=== PATIENT | female | born 1955 | race Caucasian/White ===

== ENCOUNTER → 2016-09-30 | Outpatient (CLI) | payer OTHER ==
[~2016-09-30] MED LIST: BUPROPION HCL150 M3 PO; COUMADIN5 MG PO; COUMADIN7.5 MG PO; GLUCOSAMINE S1000 M3 PO; LIPITOR40 MG PO; LORTAB 10-3251 EACH PO; MELOXICAM15 MG PO; METFORMIN HCL500 M4 PO; PERCOCET10 PO; PRINIVIL40 MG PO; PROBIOTIC1 EAC1 PO; STOOL SOFTENER50 MG PO; VITAFOL-ONE CA1 EACH PO
--- NOTE | ~2016-09-30 | CO ---
Unit #: [id number] #: [id number] Patient: BETH GOODWIN [id number] [address] [place], [place] [address] [id number] O MR#: [id number] NAME: BETH GOODWIN ROOM: Age: 61 Sex: F Admission Date: 09/30/2016 : 1955 Attending Physician: Jaron Klein M.D. Consultation Date: 09/30/2016 CONSULTATION REPORT REASON FOR CONSULTATION Preoperative medical evaluation prior to right unicompartmental knee arthroplasty, scheduled by Dr. Klein for 10/05/2016. HISTORY OF PRESENT ILLNESS The patient is a 61-year-old female, who presents to preprocedural screening for the reasons indicated above. She states it is difficult to describe the sensation that she feels in her knee with ambulation but that it is "just not right." She denies chest, back, arm, neck, jaw pain or pressure. Denies shortness of air, dyspnea on exertion, paroxysmal nocturnal dyspnea. She was evaluated by a sleep study expert in the past but lost her insurance before she was able to get the results of the sleep study. She denies history of myocardial infarction, congestive heart failure, CVA, TIA, insulin-dependent diabetes, or chronic kidney disease. She is on oral hypoglycemic therapy for diabetes mellitus. She has no other complaints at the time of this interview. She has been evaluated Dr. Klein and scheduled for the above-referenced procedure. PAST MEDICAL HISTORY 1. Osteoarthritis. 2. Diabetes mellitus. 3. Hypertension. 4. History of cervical cancer. 5. Hypothyroidism. 6. Hyperlipidemia. 7. Possible history of leukocytosis. 8. Depression/anxiety. PAST SURGICAL HISTORY 1. Left knee arthroscopy x2. 2. Left forearm ORIF with subsequent hardware removal. 3. Lens implant both eyes. 4. Laparoscopic cholecystectomy. 5. Tonsillectomy and adenoidectomy. 6. Dental surgery. 7. Colonoscopies. Please note, patient denies a personal and family history of complications to anesthesia. ALLERGIES Denies latex allergy. No known medical allergies. Unit #: [id number] #: [id number] Patient: BETH GOODWIN CURRENT MEDICATIONS 1. Bupropion HDL SR 150 mg p.o. q.p.m. 2. Lipitor 40 mg p.o. q.p.m. 3. Prinivil 40 mg p.o. q.p.m. 4. Meloxicam 15 mg p.o. q.a.m. 5. Metformin HCL ER 500 mg p.o. q.p.m. 6. Glucosamine sulfate 1000 mg p.o. q.p.m. SOCIAL HISTORY Denies tobacco use, etoh use, and illicit drug use. FAMILY HISTORY Per review of Dr. Klein's office note, hypertension and hyperlipidemia. REVIEW OF SYSTEMS A 10-point review of systems is conducted and otherwise negative except as indicated under history of present illness above. PHYSICAL EXAMINATION VITAL SIGNS: Temperature 98.6, heart rate 90, respirations 16, blood pressure 143/93, oxygen saturation 97% on room air. GENERAL: 61-year-old female, awake, alert, in no acute distress. HEENT: Atraumatic, normocephalic. Sclerae anicteric. No discharge from eyes, ears, or nares. LYMPH: No preauricular, postauricular, tonsillar, submental, anterior, posterior cervical adenopathy. ENDOCRINE: No thyromegaly, thyroid nodules or tenderness. LUNGS: Clear to auscultation all bird bilaterally without wheezes, rhonchi or rales. HEART: S1, S2. Regular rate and rhythm, without murmur or rub. ABDOMEN: Bowel sounds positive times four. Soft, nontender, nondistended. EXTREMITIES: No edema, cyanosis or clubbing. Bilateral lower extremity varicosities, right greater than left. Calves soft, nontender bilaterally. MUSCULOSKELETAL: Strength 5/5 all extremities bilaterally to flexion and extension. NEUROLOGIC: Alert and oriented x3. Speech clear. Cranial nerves II-XII are grossly intact. Follows commands. DIAGNOSTIC STUDIES LABORATORY: WBC 13.6, hemoglobin 15.0, hematocrit 45.9, platelet count 311,000. Sodium 141, potassium 4.3, chloride 106, CO2 is 26, glucose 103, BUN 18, creatinine 0.9, calcium 9.8, AST 18, ALT 22, alkaline phosphatase 85, total bilirubin 0.3, total protein 7.0, albumin 4.1. PT 9.8, INR 0.9. Urinalysis negative with neither microscopic nor culture indicated. MRSA nasal screen report pending at this time. Blood type A positive, antibody screen negative. IMAGING: Two-view chest x-ray today pending at this time. CARDIOVASCULAR: 12-lead EKG normal sinus rhythm, normal ECG. Confirmed report pending at this time. IMPRESSION 1. The patient is a 61-year-old female who presents to preprocedural screening for preoperative evaluation prior to right unicompartmental knee arthroplasty as scheduled by Dr. Klein. The Unit #: [id number] #: [id number] Patient: BETH GOODWIN patient's Brooke revised cardiac risk index is equal to 0.4%. This is consistent with patient's perioperative risk of cardiac , fatal or nonfatal myocardial infarction, arrhythmia, and/or pulmonary edema. This has been discussed in detail with the patient, she wishes to proceed with surgery as scheduled at this time. 2. Diabetes mellitus on oral hypoglycemics. Will follow Accu-Cheks postoperatively, monitor p.o. intake, place patient on constant carbohydrate diet when tolerating food and fluids, add low-dose sliding scale insulin protocol. We will also hold metformin per hospital protocol perioperatively. 3. Hypertension. Blood pressure stable today. Will monitor perioperatively and adjust medications accordingly. 4. History of cervical cancer. 5. Hypothyroidism. Patient is not on medications at this time. Will check a TSH and free T4 off work in the lab today. 6. Hyperlipidemia. 7. Mild leukocytosis. Patient states she believes she has had an issue with this in the past. There is no obvious or lab-indicated source of infection at this time. Patient has no complaints consistent with possible infection. Therefore, I have recommended a repeat CBC the a.m. of OR. 8. Depression, mild anxiety. Will continue current dose of bupropion perioperatively. Thank you for allowing us to participate in the care of this patient. We will gladly follow the patient for postop medical management pending order of Dr. Klein. Dictated by... Lexie Hernandez M.D. RLC/alma TD: 09/30/2016 16:36 JOB #: [id number] CONSULTATION REPORT Page 1 of 1 X Penny Dozier APRN X CONSULTATION REPORT
--- NOTE | ~2016-09-30 | EKG ---
PATIENT: BETH GOODWIN UNIT #: [id number] Ventricular Rate: 89 BPM Atrial Rate: 89 BPM P-R Interval: 124 ms QRS Duration: 88 ms Q-T Interval: 370 ms QTC Calculation(Bezet): 450 ms P Dustin: 36 degrees Calculated R Dustin: 19 degrees Calculated T Dustin: 19 degrees Diagnosis Line: Normal sinus rhythm Diagnosis Line: Normal ECG Diagnosis Line: No previous ECGs available Diagnosis Line: Confirmed by RALEIGH FALCON MD ([id number]) on 10/04/2016 Diagnosis Line: 3:49:29 PM INTERPRETING MD: TERRIE PICKARD
--- NOTE | ~2016-09-30 | CR63 ---
[facility] A Service of [facility] RADIOLOGY TEXT RESULTS PATIENT: BETH GOODWIN LOCATION: [facility] : [birth year] UNIT #: [id number] AGE: [address]: Jaron Klein MD SEX: F ORDER DR: [id number] [facility] [address]. [place], [place] [address] [id number] O MR#: [id number] Acc #: [id number] NAME: BETH GOODWIN : 1955 SEX: F STUDY DATE/TIME: 09/30/2016 15:23 UNIT: [facility] ROOM: STUDY DESCRIPTION: CR Chest 2 View Attending Physician: Jaron Klein M.D. Referring Physician: Jaron Klein M.D. Ordering Physician: Jaron Klein M.D. Primary Care Physician: Primary Care Physician No MEDICAL IMAGING REPORT This report is preliminary unless electronic signature is present EXAM PA and lateral chest 09/30/2016 HISTORY Shortness of breath with activity. Preoperative evaluation. Symptoms began 09/30/2016. History of cervical and uterine cancer. 30-year smoking history. COMPARISON None. FINDINGS No acute airspace disease or suspicious pulmonary nodules are identified. Heart size is normal. There are degenerative changes in the thoracic spine. IMPRESSION No acute cardiopulmonary findings. Dictated by... Garima Landon M.D. THIS IS AN ELECTRONICALLY VERIFIED REPORT Garima Landon M.D. at 10/01/2016 10:02 PM [facility]/maya TD: 10/01/2016 07:12 JOB #: [id number] [facility] A Service [facility] RADIOLOGY TEXT RESULTS PATIENT: BETH GOODWIN LOCATION: [facility] : 57 UNIT #: [id number] AGE: [address]: Jaron Klein MD SEX: F ORDER DR: MEDICAL IMAGING REPORT Page 1 of 1 COPY
[2016-09-30 12:40] LABS: HEMATOCRIT 45.9 % (35.0-45.0); MEAN CELL VOLUME 90.3 FL (83-96); MEAN CORPUSCULAR HEMOGLOBIN 29.6 PG (28-34); MEAN CORPUSCULAR HGB CONC 32.7 g/dL (30-36); MEAN PLATELET VOLUME 8.9 FL (6.5-11.5); RED BLOOD COUNT 5.08 X10e (3.90-5.30); RED CELL DISTRIBUTION WIDTH 13.6 % (11.0-15.5); WHITE BLOOD COUNT 13.6 X10e3 (4.0-10.5)
[2016-09-30 12:43] LABS: URINE APPEARANCE CLEAR; URINE BILIRUBIN NEG (NEG); URINE BLOOD NEG (NEG); URINE COLOR YELLOW; URINE GLUCOSE NEG (NEG); URINE KETONE NEG (NEG); URINE LEUKOCYTE ESTERASE NEG (NEG); URINE NITRATE NEG (NEG); URINE PROTEIN NEG (NEG); URINE SPECIFIC GRAVITY 1.023 (1.003-1.035)
[2016-09-30 12:48] LABS: CULTURE INDICATED? NO
[2016-09-30 12:54] LABS: INR 0.9; PROTHROMBIN TIME (PATIENT) 9.8 SECONDS (9.6-11.5)
[2016-09-30 13:16] LABS: ALBUMIN SERUM 4.1 g/dL (3.5-5.0); BILIRUBIN,TOTAL 0.3 mg/dL (0.2-2.0); CALCIUM SERUM 9.8 mg/dL (8.4-10.2); CREATININE SERUM 0.9 mg/dL (0.6-1.4); GLOM FILT RATE Estimated 69.5 mL/min (>60); POTASSIUM 4.3 mmol/L (3.5-5.1)
[2016-09-30 15:22] LABS: THYROID STIMULATING HORMONE 1.38 uIU/ml (0.34-5.60)
[2016-09-30 15:29] LABS: FREE THYROXIN (T4) 0.96 ng/dL (0.58-1.64)
== END | disposition home or self-care (01) ==
LOC: CAMB 11:51
PROVIDERS: Orthopaedic Surgery
DX: Z01.818 Encounter for other preprocedural examination (principal); M17.11 Unilateral primary osteoarthritis, right knee
CPT/HCPCS: 36415; 71020; 80053; 81003; 84439; 84443; 85027; 85610; 86850; 86900; 86901; 87070; 93005

== ENCOUNTER 2016-10-05 08:51 | Inpatient (IN) | payer OTHER ==
--- NOTE | ~2016-10-05 | DS ---
Unit #: [id number] #: [id number] Patient: BETH GOODWIN [id number] [address] [place], [place] [address] [id number] I MR#: [id number] NAME: BETH GOODWIN ROOM: 450 Age: 61 Sex: F Admission Date: 10/05/2016 : 1955 Discharge Date: 10/06/2016 Attending Physician: Jaron Klein M.D. Primary Care Physician: Generic Doctor Not In System DISCHARGE SUMMARY ADMITTING DIAGNOSIS Right knee osteoarthritis. DISCHARGE DIAGNOSIS Right knee osteoarthritis. PROCEDURE PERFORMED Right partial knee replacement. HOSPITAL COURSE On 10/05/2016, Ms. Goodwin underwent a right partial knee replacement. She tolerated the procedure well. She was transported to the fourth floor when she underwent physical therapy, medical management and anticoagulation therapy. She is doing well, is ready to be discharged. DISPOSITION Stable, discharge home with [facility] to follow. MEDICATIONS ON DISCHARGE Her routine home meds in addition to Redmond 10/325 mg and Coumadin 7.5 mg p.o. daily. FOLLOWUP AND INSTRUCTIONS 1. Ms. Goodwin is going to be discharged home. 2. A PT and INR to be drawn every Wednesday and . Please call the results in to [phone] or faxed to [phone], attention May. 3. Skin yolande are to be discontinued two weeks postop. Please apply Steri-Strips 1/4" apart. 4. White NICHOLAS hose are to be worn during the day and can be removed in the evening. 5. The patient can shower in one week and can drive after seen by Dr. Klein at their six week postop appointment. 6. Physical therapy is to be done for active range of motion, strengthening and progressive ambulation. 7. The patient will be on a walker for four weeks and a cane for an additional two weeks. 8. Followup with Dr. Klein is in six weeks. Please call our office for that appointment date and time. Dictated by... Miya DollA.C. for Jaron Klein M.D. NUNO/maryjane Unit #: [id number] #: [id number] Patient: BETH GOODWIN TD: 10/06/2016 12:15 JOB #: [id number] DISCHARGE SUMMARY Page 1 of 1 X Clarice Hart X DISCHARGE SUMMARY
--- NOTE | ~2016-10-05 | BMI ---
[facility] Nutrition Therapy DATE: 10/06/16 Patient: BETH GOODWIN Physician: MARCELA Address: [address] Room/Bed: [address] [place] [address], Zip: [place] [address] Admit Date: 10/05/16 Date of : [birth year] Height: 5 3 Weight: 231 105 HIGH BMI NOTE: DX: 61 yo female admitted for OA right knee ANTHROPOMETRICS: Ht: 5'3" Wt: 105 kg (231#) BMI: 41.0 DIET: Consistent carb INTERVENTION: 1. Consistent carb RECOMMENDATIONS: 1. Please add healthy heart diet restriction to promote gradual weight loss towards healthy BMI. RD will f/u per protocol. Respectfully, Tali Strange, [employer] Hilda Morrison MS, RD, LD [employer] [facility] [employer] cc: client file
--- NOTE | ~2016-10-05 | OR ---
Unit #: [id number] #: [id number] Patient: BETH GOODWIN [id number] [address] [place], [place] [address] [id number] I MR#: [id number] NAME: BETH GOODWIN ROOM: [facility] Date of Procedure: 10/05/2016 Admission Date: 10/05/2016 Surgeon: Jaron Klein M.D. : 1955 Attending Physician: Jaron Klein M.D. OPERATIVE REPORT PREOPERATIVE DIAGNOSIS Right knee medial compartment arthritis. POSTOPERATIVE DIAGNOSIS Right knee medial compartment arthritis. PROCEDURE PERFORMED Right knee unicompartmental knee replacement. ANESTHESIA Adductor canal block plus general. ESTIMATED BLOOD LOSS 50 mL. INDICATIONS FOR PROCEDURE This is a 61-year-old with severe pain on the medial side of her knee. The pain is aggravated by walking or standing. She has tried injections and anti-inflammatories with no relief of her discomfort. X-rays show she has [id number] in the medial compartment. DESCRIPTION OF PROCEDURE The patient was brought to the operating room, given 2 g of Ancef. This will be continued postop, but discontinued within 23 hours the start time of surgery. She was then given an adductor canal block, brought back to the operating room, given a general anesthetic. Tourniquet was placed around the right thigh. The right leg was prepped and draped in a sterile fashion. After this was done, the tourniquet was inflated to 300. A medial incision was made. The subcutaneous dissected away and a medial arthrotomy performed. The patellofemoral joint was in good condition as was the lateral compartment on the medial side with [id number]. We then made the proximal tibial cut using the external guide. After the proximal tibial cut was made on the medial side and then fragment was removed. The tibia was sized. It was found to be a size 1. The patient then had the trial 1 positioned, 8 mm thick, and the knee tracked properly and appeared to be quite stable. After this was done, the knee was flexed. Then, the knee was brought to extension. The distal femoral cut was made. The knee was flexed once again, it was sized at a 3. The cutting guide was positioned and then the posterior condylar cut was made. The 3 chamfer cuts were made, I doubt this was on the anterior aspect of the guide. The 3 drill holes were made. The guide was removed. The bony fragments were removed. We then did a medial meniscectomy. Injected the Unit #: [id number] #: [id number] Patient: BETH GOODWIN posterior capsule with ropivacaine. The patient then had the trial femur applied. The trial tibia applied. The knee tracked properly. The tibia did not lift-off in flexion and had good stability. We then removed all the trials. The real components were opened. The gouge and drill were used on the tibial tray. The knee was irrigated and dried while the cement was mixed and then the size 1, all poly 8 mm thick was cemented into place. Any excess cement was removed. The knee was held in extension while the cement hardened. The rest of the ropivacaine mixture was injected. The tourniquet was released. Hemostasis was obtained. The wound was closed after it was irrigated with Betadine and bacitracin, 0 Ethibond in the arthrotomy, 0 and 2-0 Vicryl in the subcutaneous, and the skin was closed with a Prineo Dermabond closure. journeyman operator assistant, Clarice Hart was present throughout the entire case. Dictated by... Mykel Trent/skyler TD: 10/06/2016 03:53 JOB #: [id number] OPERATIVE REPORT Page 1 of 1 X Jaron Klein MD PROCEDURE OPERATIVE NOTE
[~2016-10-05 08:51] MED LIST changes: -COUMADIN5 MG PO; -COUMADIN7.5 MG PO; -LIPITOR40 MG PO; -LORTAB 10-3251 EACH PO; -PERCOCET10 PO; -PRINIVIL40 MG PO; -PROBIOTIC1 EAC1 PO; -STOOL SOFTENER50 MG PO; -VITAFOL-ONE CA1 EACH PO
[2016-10-05 10:01] LABS: HEMATOCRIT 43.2 % (35.0-45.0); HEMOGLOBIN 14.4 gm/dL (12.0-16.0); MEAN CELL VOLUME 89.2 FL (83-96); MEAN CORPUSCULAR HEMOGLOBIN 29.6 PG (28-34); MEAN CORPUSCULAR HGB CONC 33.2 g/dL (30-36); MEAN PLATELET VOLUME 8.6 FL (6.5-11.5); RED BLOOD COUNT 4.84 X10e (3.90-5.30); RED CELL DISTRIBUTION WIDTH 13.6 % (11.0-15.5); WHITE BLOOD COUNT 12.6 X10e3 (4.0-10.5)
[2016-10-05 10:13] LABS: PROTHROMBIN TIME (PATIENT) 10.2 SECONDS (9.6-11.5)
[2016-10-06 03:58] LABS: HEMATOCRIT 40.6 % (35.0-45.0); HEMOGLOBIN 12.9 gm/dL (12.0-16.0); MEAN CELL VOLUME 91.4 FL (83-96); MEAN CORPUSCULAR HEMOGLOBIN 29.1 PG (28-34); MEAN CORPUSCULAR HGB CONC 31.8 g/dL (30-36); MEAN PLATELET VOLUME 9.5 FL (6.5-11.5); RED BLOOD COUNT 4.43 X10e (3.90-5.30); RED CELL DISTRIBUTION WIDTH 13.8 % (11.0-15.5); WHITE BLOOD COUNT 14.9 X10e3 (4.0-10.5)
[2016-10-06 04:21] LABS: BUN/CREATININE RATIO 23.33; CALCIUM SERUM 8.9 mg/dL (8.4-10.2); CREATININE SERUM 0.9 mg/dL (0.6-1.4); GLOM FILT RATE Estimated 69.5 mL/min (>60); POTASSIUM 4.3 mmol/L (3.5-5.1)
[2016-10-06] MEDS ORDERED: LORTAB 10-3251 EACH PO (10:21)
[2016-10-06] MEDS ORDERED: COUMADIN7.5 MG PO (10:22)
[2017-02-18] MEDS ORDERED: VITAFOL-ONE CA1 EACH PO (11:10)
[2017-02-18] MEDS ORDERED: PROBIOTIC1 EAC1 PO (11:11)
[2017-02-18] MEDS ORDERED: STOOL SOFTENER50 MG PO (11:11)
[2017-02-18] MEDS ORDERED: LIPITOR40 MG PO (12:45)
[2017-02-18] MEDS ORDERED: PRINIVIL40 MG PO (12:46)
[2017-02-19] MEDS ORDERED: COUMADIN5 MG PO (07:36)
[2017-02-19] MEDS ORDERED: PERCOCET10 PO (07:37)
== END 2016-10-06 11:45 | disposition home health service (06) | DRG 470 ==
LOC: CSUR 08:51 → CEDOF 10:40 → CSUR 11:00 → C4B 14:53 → CSUR 14:53 → CEDOF 14:53 → C4B 14:57 → CEDOF 14:57 → C4B 10-06 11:45
PROVIDERS: Orthopaedic Surgery
PROC: 0SRC0L9 Replacement of Right Knee Joint with Medial Unicondylar Synthetic Substitute, Cemented, Open Approach (ICD-10-PCS; principal; 2016-10-05 11:00)
DX: M17.11 Unilateral primary osteoarthritis, right knee (principal); I10 Essential (primary) hypertension; Z68.41 Body mass index [BMI] 40.0-44.9, adult; E11.9 Type 2 diabetes mellitus without complications; E03.9 Hypothyroidism, unspecified; D72.829 Elevated white blood cell count, unspecified; Z79.84 Long term (current) use of oral hypoglycemic drugs; E78.5 Hyperlipidemia, unspecified; G47.33 Obstructive sleep apnea (adult) (pediatric); E66.01 Morbid (severe) obesity due to excess calories; K21.9 Gastro-esophageal reflux disease without esophagitis; F41.9 Anxiety disorder, unspecified; Z90.49 Acquired absence of other specified parts of digestive tract; Z85.41 Personal history of malignant neoplasm of cervix uteri
CPT/HCPCS: 80048; 82947; 83735; 85027; 85610; 94760; 94761; 97110; 97116; 97162; 97166; 97535; C1776; G8978-GP; G8979-GP; G8980-GP; J0131; J0171; J0690; J0735; J1100; J1170; J1885; J2250; J2270; J2405; J2795; J3010